=== PATIENT | female | born 1995 | race Caucasian/White ===

== ENCOUNTER → 2021-07-30 | Outpatient (CLI) | payer OTHER ==
--- NOTE | 2021-07-31 05:23 | REP ---
INDICATION: CONSTIPATION, UNSPECIFIED. COMPARISON: None. TECHNIQUE: Upright view of the lower chest/abdomen along with supine and upright views of the abdomen and pelvis. FINDINGS: Bowel gas pattern is nonspecific although mild/moderate fecal stasis and constipation cannot be excluded. No evidence for bowel obstruction or perforation. No organomegaly. No abnormal calcifications. No foreign body. Skeletal structures intact. IMPRESSION: Mild/moderate fecal stasis and constipation cannot be excluded. <Electronically signed by Jose Yap > 07/31/21 0519
== END ==
LOC: M PLAIMG 15:53
PROVIDERS: ATTEND Family Medicine
DX: K59.00 Constipation, unspecified (principal)

== ENCOUNTER → 2021-10-02 | Outpatient (CLI) | payer OTHER ==
[2021-10-02 15:07] LABS: HEMATOCRIT 41.1 % (36.0-47.0); HEMOGLOBIN 13.9 g/dl (12.0-15.5); MEAN CORPUSCULAR HEMOGLOBIN 30.9 pg (27.0-33.0); MEAN CORPUSCULAR HGB CONC 33.8 g/dl (32.0-36.5); MEAN CORPUSCULAR VOLUME 91.3 fl (80.0-96.0); PLATELET COUNT, AUTOMATED 261 10^3/uL (150-450); WHITE BLOOD COUNT 11.6 10^3/uL (4.0-10.0)
[2021-10-02 16:27] LABS: HEPATITIS C VIRUS ABY INDEX 0.1 INDEX (<0.8); HIV 1&2 SCREEN CENTAUR NEGATIVE (NEGATIVE)
[2021-10-02 16:55] LABS: GC DNA AMPLIFICATION NEGATIVE (NEGATIVE)
== END ==
LOC: M PLALAB 12:51
PROVIDERS: ATTEND Advanced Practice Midwife
DX: Z34.81 Encounter for supervision of other normal pregnancy, first trimester (principal)

== ENCOUNTER → 2021-11-10 | Outpatient (CLI) | payer OTHER | LOC: M PLALAB 11:50 | PROVIDERS: ATTEND Obstetrics & Gynecology | DX: Z34.82 Encounter for supervision of other normal pregnancy, second trimester (principal); Z3A.00 Weeks of gestation of pregnancy not specified; Z53.9 Procedure and treatment not carried out, unspecified reason ==

== ENCOUNTER → 2021-12-22 | Outpatient (CLI) | payer OTHER | LOC: M WHC 10:20 | PROVIDERS: ATTEND Obstetrics & Gynecology | DX: Z34.82 Encounter for supervision of other normal pregnancy, second trimester (principal); Z3A.20 20 weeks gestation of pregnancy ==

== ENCOUNTER → 2022-01-30 | Outpatient (CLI) | payer OTHER ==
[2022-01-30 13:32] LABS: HEMATOCRIT 37.8 % (36.0-47.0); HEMOGLOBIN 12.9 g/dl (12.0-15.5); MEAN CORPUSCULAR HEMOGLOBIN 31.9 pg (27.0-33.0); MEAN CORPUSCULAR HGB CONC 34.1 g/dl (32.0-36.5); MEAN CORPUSCULAR VOLUME 93.3 fl (80.0-96.0); PLATELET COUNT, AUTOMATED 209 10^3/uL (150-450); RED BLOOD COUNT 4.05 10^6/uL (4.00-5.40); WHITE BLOOD COUNT 11.9 10^3/uL (4.0-10.0)
== END ==
LOC: M PLALAB 11:10
PROVIDERS: ATTEND Obstetrics & Gynecology
DX: Z34.82 Encounter for supervision of other normal pregnancy, second trimester (principal)

== ENCOUNTER → 2022-04-09 | Outpatient (REF) | payer OTHER | LOC: M SFHCWAGY 12:53 | PROVIDERS: ATTEND Advanced Practice Midwife | DX: Z34.83 Encounter for supervision of other normal pregnancy, third trimester (principal) ==

== ENCOUNTER 2022-05-15 12:06 | Inpatient (IN) | payer OTHER ==
[~2022-05-15] VITALS: Ht 167.6 cm; Wt 90.2 kg
[2022-05-15] VITALS (29 sets, daily range): BP systolic 93–202; BP diastolic 53–106
[2022-05-15] MEDS ORDERED: MULTTAB20 PO (12:34)
[2022-05-15] MEDS ORDERED: HOME MED LIST COMPLETE! XX SCH (12:40)
[2022-05-15 13:48] LABS: HEMATOCRIT 38.5 % (36.0-47.0); HEMOGLOBIN 13.3 g/dl (12.0-15.5); MEAN CORPUSCULAR HGB CONC 34.5 g/dl (32.0-36.5); MEAN CORPUSCULAR VOLUME 92.5 fl (80.0-96.0); PLATELET COUNT, AUTOMATED 160 10^3/uL (150-450); RED BLOOD COUNT 4.16 10^6/uL (4.00-5.40)
[2022-05-15] MEDS ORDERED: OXYTOCIN DRIP 30 UNITS in IV 1 EA IV PRN ×4 (14:55)
[2022-05-15] MEDS ORDERED: CARBOPROST TROMETHAMINE 250 MCG/ML AMP IM PRN (14:55)
[2022-05-15] MEDS ORDERED: TRANEXAMIC ACID INJection 1,000 MG in NS 100 ML IV PRN (14:55)
[2022-05-15] MEDS ORDERED: OXYTOCIN INJ 10 UNITS/ML VIAL (J2590) IM PRN (14:55)
[2022-05-15] MEDS ORDERED: METHYLERGONOVINE MALEATE 0.2 MG/ML VIAL (J2210) IM PRN (14:55)
[2022-05-15] MEDS ORDERED: LIDOCAINE 1% MDV 20ML VIAL INFIL PRN (14:55)
[2022-05-15] MEDS ORDERED: miSOPROStol 50MCG 1/2 TABLET PO ONE (15:15)
[2022-05-15] MEDS ORDERED: FENTANYL 2MCG/ML ROPIVACAINE 0.2% IN 0.9% NACL 100ML IVBAG As Ordered ONE (19:13)
[2022-05-15] MEDS ORDERED: ONDANSETRON 4MG 2ML VIAL IV PRN (19:15)
[2022-05-15] MEDS ORDERED: NALOXONE INJ 0.4MG/1ML VIAL (J2310 PER 1MG) IV PRN (19:15)
[2022-05-15] MEDS ORDERED: LR 500 ML IV PRN (19:15)
[2022-05-15] MEDS ORDERED: EPIDURAL/PCA KEYS XX PRN (19:15)
[2022-05-15] MEDS ORDERED: FENTANYL/ROPIVACAINE/NACL BAG 100 ML EPIDURAL SCH (19:15)
[2022-05-15] MEDS ORDERED: OXYTOCIN DRIP 30 UNITS in IV 1 EA IV SCH ×2 (19:15→20:50)
[2022-05-15] MEDS ORDERED: LR 1,000 ML IV SCH ×2 (19:15→20:50)
[2022-05-15] MEDS ORDERED: diphenhydrAMINE 50MG/ML VIAL (J1200) IV PRN (19:15)
[2022-05-15] MEDS: ePHEDrine SULFATE 25 MG/5 ML(5MG/ML) SYRINGE IVP PRN ×2 (20:30→20:42)
[2022-05-16] VITALS (9 sets, daily range): BP systolic 110–160; BP diastolic 67–96
[2022-05-16] MEDS ORDERED: RHOGAM 300 MCG (1500 IU) INJ (J2790) IM SCH (00:05)
[2022-05-16] MEDS ORDERED: IBUPROFEN 600MG TAB PO PRN (00:05)
[2022-05-16] MEDS ORDERED: ACETAMINOPHEN 500 MG TAB PO PRN (00:05)
[2022-05-16] MEDS ORDERED: ACETAMINOPHEN TAB 650MG DOSE (2X325MG) PO PRN (00:05)
[2022-05-16] MEDS ORDERED: METHYLERGONOVINE MALEATE 0.2 MG TAB PO PRN (00:05)
[2022-05-16] MEDS ORDERED: OXYTOCIN DRIP 30 UNITS in IV 1 EA IV SCH (00:05)
[2022-05-16] MEDS ORDERED: DIBUCAINE 1% OINTMENT 30GM TOP PRN (00:05)
[2022-05-16] MEDS: IBUPROFEN 800 MG TAB PO PRN ×2 (04:37→14:41)
[2022-05-16] MEDS: PRENATAL VITAMINS CHEWABLE TABLET PO SCH (10:12)
[2022-05-16] MEDS: DOCUSATE SODIUM 100MG CAPSULE PO PRN (14:41)
[2022-05-17 06:00] VITALS: BP 103/58
[2022-05-17] MEDS: PRENATAL VITAMINS CHEWABLE TABLET PO SCH (09:01)
[2022-05-17] MEDS: DOCUSATE SODIUM 100MG CAPSULE PO PRN (09:55)
[2022-05-18] MEDS ORDERED: MEASLES,MUMPS,RUBELLA VACCINE INJ (MMR-II) (90707) SC.IMMUN ONE (09:00)
== END 2022-05-17 13:36 | disposition home or self-care (01) | DRG 807 ==
LOC: M LDI 12:06 → M OBS 05-16 02:15
PROVIDERS: ADMIT Advanced Practice Midwife; ATTEND Advanced Practice Midwife
PROC: 10E0XZZ Delivery of Products of Conception, External Approach (ICD-10-PCS; principal; 2022-05-15)
PROC: 3E0DXGC Introduction of Other Therapeutic Substance into Mouth and Pharynx, External Approach (ICD-10-PCS; 2022-05-15)
DX: O48.0 Post-term pregnancy (principal); Z37.0 Single live birth; Z3A.41 41 weeks gestation of pregnancy

== ENCOUNTER → 2023-03-02 | Outpatient (REF) | payer OTHER ==
[~2023-03-02] MED LIST: MULTTAB20 PO
== END ==
LOC: M SFHCWAGY 15:36
PROVIDERS: ATTEND Nurse Practitioner Family
DX: Z12.4 Encounter for screening for malignant neoplasm of cervix (principal)